=== PATIENT | female | born 1955 | race Caucasian/White ===

== ENCOUNTER 2016-11-27 16:06 | Emergency (ER) | payer OTHER ==
[~2016-11-27] VITALS: Ht 170.2 cm; Wt 110.4 kg
[~2016-11-27 16:06] MED LIST: CYCL-36 PO; DICL75 PO; FIORTAB4 PO; FLUT1INH INH; HYDR-3129 PO; LISI-357 PO; METO25CR PO; NEUR600T PO; TRAM100T19 PO; ZOCO40TA PO
[2016-11-27 16:34] VITALS: BP 134/95; PULSE 96; RESP 18; TEMP 98.7; O2SAT 97
[2016-11-27 20:52] LABS: BLOOD, URINE TRACE (NEG); GLUCOSE,URINE 500 mg/dL (NEG); KETONE, URINE 15 mg/dL (NEG); NITRITE,URINE NEG (NEG)
[2016-11-27 21:06] LABS: MUCUS URINE FEW /lpf (OCC); RBC, URINE 0-3 /hpf (0-3); SQUAMOUS EPITHELIAL CELL URINE 0-5 /hpf (0-5); WBC, URINE 0-2 /hpf (0-5)
[2016-11-27 21:07] LABS: COMMENT (UR) CULT NOT INDICATED; CULTURE IF INDICATED CULT NOT INDICATED
[2016-11-27 21:37] LABS: METHOD OF COLLECTION CLEAN CATCH; URINE COLOR YELLOW (YELLW/STRAW)
[2016-11-27 21:46] VITALS: BP 162/102; PULSE 72; RESP 20; O2SAT 98
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
[2016-11-27 22:15] VITALS: BP 167/75; PULSE 70; RESP 20; O2SAT 96
[2016-11-27] MEDS ORDERED: MORPHINE SULFATE 4 MG/ML INJ IV PUSH ONE (22:15)
[2016-11-27] MEDS ORDERED: SODIUM CHLORIDE 0.9% FLUSH 10 ML FLUSH IV FLUSH PRN (22:15)
[2016-11-27] MEDS ORDERED: ONDANSETRON HCL 4 MG/2 ML VIAL IVP ONE (22:15)
[2016-11-27] MEDS ORDERED: BUTA1CAP PO (22:23)
[2016-11-27] MEDS ORDERED: TRAM50TA PO (22:31)
[2016-11-27] MEDS ORDERED: SIMV20TA PO (22:31)
[2016-11-27] MEDS ORDERED: GABA600T PO (22:31)
[2016-11-27] MEDS ORDERED: METO25TA6 PO (22:31)
[2016-11-27] MEDS ORDERED: CYCL1TAB29 PO (22:31)
[2016-11-27] MEDS ORDERED: DIOV160T6 PO (22:31)
[2016-11-27] MEDS ORDERED: HYDR-3366 PO (22:31)
[2016-11-27] MEDS ORDERED: DICL1CAP4 PO (22:31)
[2016-11-27 22:42] VITALS: BP 161/75; PULSE 70; RESP 20; O2SAT 98
[2016-11-27] MEDS: SODIUM CHLOR 0.9% 1000 ML INJ 1,000 ML IV SCH (22:42)
[2016-11-27 23:34] LABS: AUTOMATED NEUTROPHIL # 3.3 TH/MM3 (1.8-7.7); BASOPHIL % 0.4 % (0.0-2.0); EOSINOPHIL % 0.8 % (0.0-4.0); HEMATOCRIT 40.4 % (35.0-46.0); HEMO FLAGS DIFF FINAL; LYMPH % 32.7 % (9.0-44.0); LYMPHOCYTE # 1.8 TH/MM3 (1.0-4.8); MEAN CORPUSCULAR HEMOGLOBIN 29.3 PG (27.0-34.0); MONO % 4.8 % (0.0-8.0); NEUT % 61.3 % (16.0-70.0); PLATELET COUNT 191 TH/MM3 (150-450); RED CELL DISTRIBUTION WIDTH 12.6 % (11.6-17.2); WHITE BLOOD COUNT 5.4 TH/MM3 (4.0-11.0)
[2016-11-27 23:42] VITALS: BP 144/71; PULSE 60; RESP 20; O2SAT 98
[2016-11-27 23:50] LABS: CHLORIDE 103 MEQ/L (98-107); POTASSIUM 4.3 MEQ/L (3.5-5.1); SODIUM (NA) 141 MEQ/L (136-145)
[2016-11-27 23:54] LABS: ANION GAP 9 MEQ/L (5-15); BLOOD UREA NITROGEN 13 MG/DL (7-18)
[2016-11-27 23:57] LABS: ALT (GPT) 48 U/L (10-53); AST (GOT) 36 U/L (15-37); GLOMERULAR FILTRATION RATE 112 ML/MIN (>89)
[2016-11-27 23:59] LABS: TOTAL BILIRUBIN ADULT 0.4 MG/DL (0.2-1.0)
[2016-11-28] LABS: ALKALINE PHOSPHATASE 88 U/L (45-117)
[2016-11-28] MEDS: SODIUM CHLOR 0.9% 1000 ML INJ 1,000 ML IV SCH (00:13)
[2016-11-28 00:30] VITALS: BP 148/71; PULSE 60; RESP 20; O2SAT 98
[2016-11-28] MEDS ORDERED: IOHEXOL 350 MG/ML 10 ML VIAL (for RAD DIAG) IV ONE (00:56)
--- NOTE | 2016-11-28 01:03 | RADHPO ---
EXAM DATE/TIME: 11/28/2016 00:33 [facility] COMPARISON: CT ABDOMEN & PELVIS W/O CONTRAST, August 07, 2009, 18:46. INDICATIONS : Right lower quadrant pain. IV CONTRAST: 100 cc Omnipaque 350 (iohexol) IV ORAL CONTRAST: No oral contrast ingested. RADIATION DOSE: 22.29 CTDIvol (mGy) MEDICAL HISTORY : Gastroesophageal reflux disease. Diabetes mellitus type 2. Hypertension. SURGICAL HISTORY : Cholecystectomy. Hysterectomy.Fusion, lumbar. ENCOUNTER: Initial ACUITY: 2 days PAIN SCALE: 7/10 LOCATION: Right lower quadrant TECHNIQUE: Volumetric scanning of the abdomen and pelvis was performed. Using automated exposure control and ad justment of the mA and/or kV according to patient size, radiation dose was kept as low as reasonably achievable to obtain optimal diagnostic quality images. FINDINGS: The patient is status post cholecystectomy, bilateral total hip arthroplasty. No pleural or pericardi al effusions are seen. There is diffuse decreased density of the liver characteristic of hepatic stea tosis. There is mild dilatation of the biliary tree likely a reservoir artifact. Common bile duct morris sures 1.4 cm in maximal dimension. The kidneys, spleen, pancreas, adrenal glands, stomach are unremar kable. The urinary bladder is unremarkable. Ovaries are normal. Uterus unremarkable. There is diverti culosis of the sigmoid colon and descending colon without diverticulitis. No evidence of bowel obstru ction. The appendix is normal. No adenopathy or aneurysm. Lung bases are clear. Degenerative changes of the spine are noted. Remote right inferior pubic ramus fracture. CONCLUSION: 1. Hepatomegaly and hepatic steatosis. 2. Diverticulosis without diverticulitis. 3. Mild prominence of the intra-and extrahepatic biliary tree likely a reservoir effect from previous cholecystectomy. 4. No acute findings. Tello Oconnell MD on November 28, 2016 at 0:59 Board Certified Radiologist. This report was verified electronically.
[2016-11-28 01:30] VITALS: BP 155/82
== END 2016-11-28 01:51 | disposition home or self-care (01) ==
LOC: PHED 16:06
DX: A08.4 Viral intestinal infection, unspecified (principal); E78.00 Pure hypercholesterolemia, unspecified; M19.90 Unspecified osteoarthritis, unspecified site; I10 Essential (primary) hypertension
CPT/HCPCS: 74177; 80053; 81001; 83690; 85025; 96361; 96374; 96375; 99284; J2270; J2405; J7030; Q9967

== ENCOUNTER → 2016-12-24 | Outpatient (CLI) | payer OTHER ==
[~2016-12-24] MED LIST changes: +BUTA1CAP PO; -CYCL-36 PO; +CYCL1TAB29 PO; +DICL1CAP4 PO; -DICL75 PO; +DIOV160T6 PO; -FIORTAB4 PO; -FLUT1INH INH; +GABA600T PO; -HYDR-3129 PO; +HYDR-3366 PO; -LISI-357 PO; -METO25CR PO; +METO25TA6 PO; -NEUR600T PO; +SIMV20TA PO; -TRAM100T19 PO; +TRAM50TA PO; -ZOCO40TA PO
[2016-12-24 13:56] LABS: LDL CHOLESTEROL 94 MG/DL (0-99)
[2016-12-24 13:58] LABS: CREATINE KINASE 78 U/L (26-192); MICRO ALBUMIN RANDOM URINE RAW 56.8 MG/L (0.0-30.0)
[2016-12-24 16:51] LABS: HEMOGLOBIN A1a 1.2 %; HEMOGLOBIN A1b 2.7 %; HEMOGLOBIN Ao 76.8 %; HEMOGLOBIN LA1C 3.2 %; HEMOGLOBIN P3 5.1 %
== END ==
LOC: PLAB 11:31
PROVIDERS: ATTEND Internal Medicine Interventional Cardiology
DX: I25.10 Atherosclerotic heart disease of native coronary artery without angina pectoris (principal); I10 Essential (primary) hypertension; E78.2 Mixed hyperlipidemia; G47.33 Obstructive sleep apnea (adult) (pediatric); I47.1 Supraventricular tachycardia; I38 Endocarditis, valve unspecified; E11.9 Type 2 diabetes mellitus without complications; Z68.38 Body mass index [BMI] 38.0-38.9, adult
CPT/HCPCS: 36415; 80061; 82043; 82550; 83036

== ENCOUNTER → 2017-04-01 | Outpatient (CLI) | payer OTHER ==
[2017-04-01 17:11] LABS: MICRO ALBUMIN RANDOM URINE RAW 5.3 MG/L (0.0-30.0)
[2017-04-01 18:43] LABS: HEMOGLOBIN A1a 1.5 %; HEMOGLOBIN A1b 1.2 %; HEMOGLOBIN Ao 73.1 %; HEMOGLOBIN F 1.8 %; HEMOGLOBIN LA1C 4.6 %; HEMOGLOBIN P3 5.6 %
== END ==
LOC: PLAB 14:28
PROVIDERS: ATTEND Internal Medicine
DX: E11.9 Type 2 diabetes mellitus without complications (principal)
CPT/HCPCS: 36415; 82043; 83036

== ENCOUNTER → 2017-06-03 | Outpatient (CLI) | payer OTHER ==
[2017-06-03 17:42] LABS: HDL CHOLESTEROL 49.2 MG/DL (40.0-60.0); INDIRECT BILIRUBIN 0.2 MG/DL (0.0-0.8); TOTAL BILIRUBIN ADULT 0.3 MG/DL (0.2-1.0)
== END ==
LOC: PLAB 14:46
PROVIDERS: ATTEND Internal Medicine Interventional Cardiology
DX: E78.2 Mixed hyperlipidemia (principal); Z79.899 Other long term (current) drug therapy
CPT/HCPCS: 80061; 80076; 82550

== ENCOUNTER → 2017-08-05 | Outpatient (CLI) | payer OTHER ==
[~2017-08-05] MED LIST changes: +CYCL10TA PO; -CYCL1TAB29 PO; +METO1TAB42 PO; -METO25TA6 PO
[2017-08-05 13:43] LABS: MICRO ALBUMIN RANDOM URINE RAW 13.6 MG/L (0.0-30.0)
[2017-08-05 16:59] LABS: HEMOGLOBIN A1a 0.6 %; HEMOGLOBIN Ao 82.6 %; HEMOGLOBIN LA1C 2.2 %; HEMOGLOBIN P3 4.5 %
== END ==
LOC: PLAB 07:59
PROVIDERS: ATTEND Internal Medicine
DX: E11.9 Type 2 diabetes mellitus without complications (principal)
CPT/HCPCS: 36415; 82043; 83036

== ENCOUNTER 2017-09-13 04:45 | Emergency (ER) | payer OTHER ==
[~2017-09-13] VITALS: Ht 170.2 cm; Wt 121.1 kg
[2017-09-13 04:49] VITALS: BP 138/87; PULSE 89; TEMP 97.8; O2SAT 97
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
--- NOTE | 2017-09-13 06:18 | RADRPT ---
EXAM DATE/TIME: 09/13/2017 05:49 [facility] COMPARISON: US LEG RIGHT VENOUS DOPPLER, April 03, 2015, 12:26. INDICATIONS : Right leg pain. MEDICAL HISTORY : Hypercholesterolemia. Renal calculi. Osteoarthritis. Migraines. History of SVT. Hyperlipidemia. HT N. Pneumonia. GERD. Degenerative disc disease. Arhtitis. Herniated disc. Diabetes. Shingles. Insomnia . Bernadette's syndrome. depression. anxiety. SURGICAL HISTORY : Cholecystectomy. Cardiac cath. Pheumothorax. Chest tube. Uterine ablasion. Anterior cervical fusio n. Discectomy x4. Right carpel tunnel release. Bilateral total hip replacements. Reverse left total h ip replacement. Blood transfusions. Neck tumor removal. ENCOUNTER: Initial ACUITY: 3 days PAIN SCORE: 3/10 LOCATION: Right leg. TECHNIQUE: Venous ultrasound of the leg was performed from the inguinal ligament to the proximal calf. Real-goe e, color Doppler and spectral tracing, compression and augmentation techniques were used. FINDINGS: There is normal compressibility of the deep venous system from the inguinal region to the proximal ca lf. No echogenic clot is seen in the lumen of the common femoral, femoral, popliteal, and posterior tibial veins. There is a normal response of the venous system to proximal and distal augmentation an d respiration. CONCLUSION: No evidence of right lower extremity DVT. Erik Stephenson MD on September 13, 2017 at 6:16 Board Certified Radiologist. This report was verified electronically.
== END 2017-09-13 06:13 | disposition home or self-care (01) ==
LOC: PHED 04:45
DX: S86.911A Strain of unspecified muscle(s) and tendon(s) at lower leg level, right leg, initial encounter (principal); F41.9 Anxiety disorder, unspecified; F32.9 Major depressive disorder, single episode, unspecified; I47.1 Supraventricular tachycardia; E11.9 Type 2 diabetes mellitus without complications; E78.00 Pure hypercholesterolemia, unspecified; K21.9 Gastro-esophageal reflux disease without esophagitis; I10 Essential (primary) hypertension; X58.XXXA Exposure to other specified factors, initial encounter
CPT/HCPCS: 93971; 99284

== ENCOUNTER → 2017-11-18 | Outpatient (CLI) | payer OTHER ==
[2017-11-18 16:11] LABS: ALBUMIN 3.6 GM/DL (3.4-5.0); ALT (GPT) 42 U/L (10-53); AST (GOT) 24 U/L (15-37); BICARBONATE 30.3 MEQ/L (21.0-32.0); BLOOD UREA NITROGEN 15 MG/DL (7-18); CHLORIDE 107 MEQ/L (98-107); CHOLESTEROL 167 MG/DL (120-200); CREATININE 0.57 MG/DL (0.50-1.00); GLOMERULAR FILTRATION RATE 107 ML/MIN (>89); GLUCOSE,FASTING 139 MG/DL (74-99); SODIUM (NA) 144 MEQ/L (136-145); TRIGLYCERIDES 107 MG/DL (42-150)
[2017-11-18 16:20] LABS: ALKALINE PHOSPHATASE 96 U/L (45-117); CHOLESTEROL/ HDL RATIO 3.88 RATIO; FREE T4 1.08 NG/DL (0.76-1.46); LDL CHOLESTEROL 103 MG/DL (0-99); TOTAL BILIRUBIN ADULT 0.2 MG/DL (0.2-1.0); TOTAL PROTEIN 7.3 GM/DL (6.4-8.2)
== END ==
LOC: PLAB 11:47
PROVIDERS: ATTEND Internal Medicine Interventional Cardiology
DX: I10 Essential (primary) hypertension (principal); I25.10 Atherosclerotic heart disease of native coronary artery without angina pectoris; E78.2 Mixed hyperlipidemia; I47.1 Supraventricular tachycardia; I38 Endocarditis, valve unspecified; Z79.899 Other long term (current) drug therapy; Z68.39 Body mass index [BMI] 39.0-39.9, adult
CPT/HCPCS: 36415; 80053; 80061; 82550; 84439; 84443

== ENCOUNTER → 2017-12-03 | Outpatient (CLI) | payer OTHER ==
[2017-12-03 14:03] LABS: AUTOMATED NEUTROPHIL # 3.9 TH/MM3 (1.8-7.7); BASOPHIL % 0.6 % (0.0-2.0); EOSINOPHIL # 0.1 TH/MM3 (0-0.4); EOSINOPHIL % 1.8 % (0.0-4.0); HEMATOCRIT 39.3 % (35.0-46.0); LYMPH % 37.3 % (9.0-44.0); LYMPHOCYTE # 2.6 TH/MM3 (1.0-4.8); MEAN CELL VOLUME 86.5 FL (80.0-100.0); MEAN CORPUSCULAR HEMOGLOBIN 28.6 PG (27.0-34.0); MEAN CORPUSCULAR HGB CONC 33.1 % (32.0-36.0); MEAN PLATELET VOLUME 8.7 FL (7.0-11.0); MONO % 5.6 % (0.0-8.0); MONOCYTE # 0.4 TH/MM3 (0-0.9); NEUT % 54.7 % (16.0-70.0); PLATELET COUNT 227 TH/MM3 (150-450); RED BLOOD COUNT 4.54 MIL/MM3 (4.00-5.30); RED CELL DISTRIBUTION WIDTH 13.8 % (11.6-17.2); WHITE BLOOD COUNT 7.1 TH/MM3 (4.0-11.0)
[2017-12-03 14:09] LABS: BACTERIA, URINE MANY /hpf; BILIRUBIN, URINE NEG (NEG); BLOOD, URINE NEG (NEG); GLUCOSE,URINE NEG (NEG); HYALINE CAST, URINE 13 /lpf (RARE); KETONE, URINE NEG (NEG); MUCUS URINE MOD /lpf (OCC); NITRITE,URINE NEG (NEG); URINE COLOR YELLOW (YELLW/STRAW); URINE LEUKOCYTE ESTERASE LARGE (NEG)
[2017-12-03 14:14] LABS: ALBUMIN 3.5 GM/DL (3.4-5.0); AST (GOT) 21 U/L (15-37); BLOOD UREA NITROGEN 16 MG/DL (7-18); CALCIUM 8.9 MG/DL (8.5-10.1); CHLORIDE 107 MEQ/L (98-107); CREATININE 0.55 MG/DL (0.50-1.00); GLOMERULAR FILTRATION RATE 112 ML/MIN (>89); GLUCOSE,FASTING 88 MG/DL (74-99); SODIUM (NA) 141 MEQ/L (136-145)
[2017-12-03 14:15] LABS: ALT (GPT) 31 U/L (10-53); CHOLESTEROL 131 MG/DL (120-200); TRIGLYCERIDES 126 MG/DL (42-150)
[2017-12-03 14:24] LABS: ALKALINE PHOSPHATASE 86 U/L (45-117); CHOLESTEROL/ HDL RATIO 3.29 RATIO; HDL CHOLESTEROL 39.8 MG/DL (40.0-60.0); LDL CHOLESTEROL 66 MG/DL (0-99); TOTAL BILIRUBIN ADULT 0.3 MG/DL (0.2-1.0); TOTAL PROTEIN 7.5 GM/DL (6.4-8.2)
[2017-12-04 21:17] LABS: HEMOGLOBIN A1C 7.5 % (4.3-6.0)
== END ==
LOC: PLAB 09:09
PROVIDERS: ATTEND Internal Medicine
DX: E78.2 Mixed hyperlipidemia (principal); E11.9 Type 2 diabetes mellitus without complications; N39.0 Urinary tract infection, site not specified; B96.1 Klebsiella pneumoniae [K. pneumoniae] as the cause of diseases classified elsewhere
CPT/HCPCS: 36415; 80053; 80061; 81001; 83036; 84443; 85025; 87077; 87086; 87186